=== PATIENT | female | born 1965 ===

== ENCOUNTER 2017-12-26 13:23 | Emergency (ER) | payer OTHER ==
[2017-12-26] MEDS ORDERED: ONDANSETRON 4 MG/2 ML VIAL IVP ONE ×2 (13:30→16:25)
[2017-12-26] MEDS ORDERED: fentaNYL CITR 100 MCG/2 ML AMP IVP ONE (13:30)
[2017-12-26] MEDS ORDERED: ESTR1PAT4 TD (13:31)
[2017-12-26] MEDS ORDERED: METO25TA93 PO (13:31)
[2017-12-26] MEDS ORDERED: DEXL60CA6 PO (13:31)
[2017-12-26] MEDS ORDERED: LATA2.5D7 OP (13:32)
--- NOTE | 2017-12-26 13:32 | ER Report ---
History and Physical Time Seen By MD: 13:23 Hx. of Stated Complaint: PT PRESENTS WITH HX OF TRIPPING ON CURB AND FALLING , CATCHIING HERSELF WITH L ARM. PT HAS DEFORMITY TO L WRIST ([facility]) HPI/ROS CHIEF COMPLAINT: Fall HISTORY OF PRESENT ILLNESS: This is a 52-year-old female who presents to the emergency department via EMS for a fall and a left wrist and forearm deformity. Patient states that about 20-30 minutes prior to arrival she was helping guide the truck up to a trailer while she was walking backwards she tripped over a curb put her hand out behind her to break the fall she fell down and the left arm buckled. There is an obvious deformity to the distal forearm/wrist. Patient states she did hit her head but no loss of consciousness, no C-spine pain and no shoulder or humerus pain. CMS intact distal to the injury. No chest pain or shortness of breath no aches or chills. REVIEW OF SYSTEMS: Respiratory: No cough, no dyspnea. Cardiovascular: No chest pain, no palpitations. Gastrointestinal: No vomiting, no abdominal pain. Musculoskeletal: As above. ([facility]) Allergies: Coded Allergies: Penicillins (Verified Allergy, Unknown, 12/26/17) Home Meds Active Scripts Ondansetron (ZOFRAN ODT) 4 Mg Tab.rapdis, 4 MG PO Q6H Y for NAUSEA/VOMITING, # 20 TAB.BARBIE Prov:[facility] 12/26/17 Hydrocodone Bit/Acetaminophen (NORCO 5-325 TABLET) 1 Each Tablet, 1 EACH PO Q4- 6H Y for PAIN, #12 TAB Prov:[facility] 12/26/17 Reported Medications Latanoprost (LATANOPROST) 2.5 Ml Drops, 2.5 ML OP 12/26/17 Estradiol (ESTRADIOL 0.1 MG) 1 Each Patch.tdwk, 1 EACH TD Q7D, PATCH.WK 12/26/17 Dexlansoprazole (DEXILANT) 60 Mg Meet., 60 MG PO 12/26/17 Metoprolol Tartrate (METOPROLOL TARTRATE) 25 Mg Tablet, 2 TAB PO BID, TAB 12/26/17 Past Medical/Surgical History Patient has a past medical and surgical history of hypertension, GERD, hysterectomy, tubal ligation, right foot surgery. ([facility]) Reviewed Nurses Notes: Yes ([facility]) Constitutional Vital Sign - Last 24 Hours 12/26/17 12/26/17 12/26/17 12/26/17 13:23 13:23 13:24 13:47 Temp 98.5 Pulse 77 Resp 20 B/P (MAP) 155/130 (138) 155/130 (138) 155/130 155/88 (110) Pulse Ox 93 O2 Delivery Room Air 12/26/17 12/26/17 12/26/17 12/26/17 13:47 13:53 13:53 14:00 Pulse 76 76 B/P (MAP) 155/88 (110) 134/85 (101) Pulse Ox 89 89 12/26/17 12/26/17 14:00 14:01 B/P (MAP) 134/85 (101) O2 Flow Rate 2.0 (VENTURA WRIGHT S DO) Physical Exam General Appearance: The patient is alert, has no immediate need for airway protection and no current signs of toxicity. Eyes: Pupils equal and round no injection. Respiratory: Chest is non tender, lungs are clear to auscultation. Cardiac: regular rate and rhythm, no murmurs, clicks or rubs. Gastrointestinal: Abdomen is soft and non tender, no masses, bowel sounds normal. Musculoskeletal: Neck: Neck is supple and non tender. Extremities obvious deformity to the left distal forearm, some crepitation identified. Patient can move her thumb, abduct her fingers however there is significant pain with abduction. Sensation intact with some numbness and tingling to the medial side and palmar side of the left index finger and thumb. Good capillary refill. Mild discomfort to the medial elbow with palpation, no crepitus or obvious deformities to the elbow. Skin: No rashes or lesions. DIFFERENTIAL DIAGNOSIS: After history and physical exam differential diagnosis was considered for dislocation, wrist fracture, fracture, forearm fracture and dislocation. ([facility]) Medical Decision Making EKG/Imaging Imaging WRIST LEFT MIN 3 VIEW COMPARISON: Left wrist radiographs earlier today. HISTORY: POST REDUCTION TECHNIQUE: 3 views of the left wrist were obtained with time stamp 1439 hours. FINDINGS: BONES: Post reduction there is improved alignment of a comminuted intra- articular distal radial metaphysis fracture. There is about 4 mm of residual dorsal displacement and mild residual dorsal angulation. Distally displaced ulnar styloid fracture fragment is noted. No new fractures are seen. Fine bony details obscured by the overlapping splint. SOFT TISSUES: Diffuse soft tissue swelling. OTHER: Negative. IMPRESSION: 1. Improved alignment of the comminuted intra-articular distal radial metaphysis fracture post reduction. Mild residual dorsal displacement and angulation are noted. 2. Distally displaced ulnar styloid fracture fragment has shifted in position from the prereduction films. Report Dictated By: Reyes Ornelas at 12/26/2017 3:10 PM Report E-Signed By: Reyes Ornelas at 12/26/2017 3:12 PM WSN:[id number] HAND COMPLETE LEFT COMPARISON: None. HISTORY: fall, pain TECHNIQUE: 3 views of the left hand were obtained. FINDINGS: BONES: Acute comminuted fracture of the distal left radial metaphysis as described on the shank tapper wrist films. No other acute fractures are identified. No significant arthropathy. Small chronic bone fragment at the base of the first metacarpal, probably related to remote trauma. There is a round density in the projection of the distal ulnar metaphysis which could represent a displaced ulnar styloid fracture fragment. SOFT TISSUES: Diffuse soft tissue swelling. Punctate metallic density foreign bodies in the projection of multiple fingers. These could be on the skin. OTHER: Negative. IMPRESSION: 1. Acute comminuted fracture, distal left radial metaphysis as described on shank tapper wrist films. 2. Density in the projection of the distal ulnar metaphysis could be a displaced ulnar styloid fracture fragment. 3. Metallic density foreign bodies in the projection of the fifth fingers, possibly on the skin. Report Dictated By: Reyes Ornelas at 12/26/2017 3:07 PM Report E-Signed By: Reyes Ornelas at 12/26/2017 3:10 PM WSN:[id number] ELBOW 2 VIEW LEFT COMPARISON: None. HISTORY: fall, deformity TECHNIQUE: 2 views of the left elbow, including a frontal and an oblique view. I confirmed with the technologist that a lateral view was not obtained. FINDINGS: BONES: No significant arthropathy, fracture, malalignment, or significant osseous lesion. Elbow alignment is within normal limits. SOFT TISSUES: Negative. No visible soft tissue swelling. EFFUSION: Cannot be assessed without a true lateral view. OTHER: Negative. IMPRESSION: No acute fracture or malalignment, left elbow. Cannot assess for joint effusion without a lateral view. Report Dictated By: Reyes Ornelas at 12/26/2017 3:06 PM Report E-Signed By: Reyes Ornelas at 12/26/2017 3:13 PM WSN:[id number] [facility]: [facility] [place] Patient: Jadon Su : 1965 Visit/Account:[id number] Date of Sevice: 12/26/2017 ADDENDUM #1 Also noted is a small round density in the projection of the distal ulnar metaphysis which could represent a displaced ulnar styloid fracture fragment. Report Dictated By: Reyes Ornelas at 12/26/2017 3:10 PM Report E-Signed By: Reyes Ornelas at 12/26/2017 3:10 PM ORIGINAL REPORT WRIST LEFT MIN 3 VIEW COMPARISON: None. HISTORY: fall, deformity TECHNIQUE: 3 views of the left wrist were obtained. FINDINGS: BONES: Acute comminuted intra-articular fracture of the distal left radial metaphysis with a full bone shaft width of dorsal displacement, moderate dorsal angulation, moderate impaction and up to 1.3 cm of overriding of fracture fragments. The proximal carpal low is displaced dorsally with the articular surface of the radius. No other fractures are identified. Carpal alignment within normal limits. Small chronic bone fragment, base of the first metacarpal. This could be due to remote trauma. SOFT TISSUES: Circumferential soft tissue swelling. OTHER: Negative. IMPRESSION: Acute comminuted intra-articular fracture of the distal left radial metaphysis with dorsal displacement and angulation, impaction and overriding. Report Dictated By: Reyes Ornelas at 12/26/2017 3:03 PM Report E-Signed By: Reyes Ornelas at 12/26/2017 3:06 PM WSN:[id number] [facility] Clinical Indication for ER IV: Hydration, IV Access ED Course The patient was admitted to room. A history of physical or pain. Differential diagnoses were considered. An IV was started. A 1 L normal saline bolus was given. Patient did receive the heart and 50 g IM and route via EMS. In the emergency department the patient was given 50 g IV fentanyl, 1 mg IV Dilaudid, 4 mg IV Zofran. X-ray of the left elbow showing no acute fracture. Left hand x- ray no acute fracture. Left wrist showing an acute comminuted fracture, distal left radial metaphysis, acute comminuted intra-articular fracture of the distal left radial metaphysis with dorsal displacement and a relation. Patient was given procedural sedation using ketamine as noted below, patient tolerated very well the wrist was reduced a postreduction film was obtained. The left wrist and forearm were splinted using a sugar tong and secured with an Enrique wrap. The post reduction x-ray is showing improved alignment of the comminuted intra- articular distal radial metaphysis fracture, and mild residual dorsal displacement and angulation. Distally displaced ulnar styloid fracture fragment has shifted into position from the previous x-ray. The patient was placed in a sling. Patient was given 2 mg IV morphine after she began to wake up his pain began to increase, patient was then given a [place] as well as a prescription for [place] and Zofran. I did review this case with Dr. Bush as noted below, he felt that the patient would be up to go home and follow-up with the orthopedist of their choice in the [place] area. I did discuss at length with the patient and his family to be sure and keep the arm elevated take the medications as prescribed and seek immediate medical attention if severe pain develops, discoloration of the extremities with decreased sensation. The patient's and the family expressed understanding of the patient was discharged home. The patient had no questions or concerns at this time of discharge. 12/26/2017 3:34:45 pm in to reassess the patient's sensation, the numbness and tingling has improved, full sensation patient is able to move her fingers. Good capillary refill. 12/26/2017 3:40:27 pm I did speak with Dr. Bush, the orthopedist editorial cartoonist, he will take a look at the images and remain off there is anything else that we need to do prior to discharge. 12/26/2017 3:45:[address] Bush did call back, he was able to view the images said that the postreduction looks well enough to discharge the patient, the patient will follow-up in [place] with her orthopedist this week. Procedure: Procedural sedation. A pre-sedation evaluation was completed on the patient at 1420. Patient is an appropriate candidate for procedural sedation. The risks of the sedation were discussed with the patient. A time out was completed. The patient was reevaluated immediately prior to initiation of sedation. The patient was sedated with ketamine, 75mg. The patient was monitored with continuous pulse oximetry and manager monitoring. There were no complications and no significant hypoxemia. I remained at the bedside for the sedation. The total time I spent in the procedural sedation was 20minutes. Post sedation evaluation: Patient was alert and cooperative, hemodynamically stable with appropriate respiratory status, temperature and pain control without ongoing nausea and vomiting. Procedure: Dislocation/fracture reduction. The left wrist was reduced in the usual fashion without complications. Post reduction the patient's neurovascular exam is normal. Post reduction x-ray demonstrates reduction of the joint to the anatomic position. The procedure was performed by myself and Dr. Wright. Decision to Disposition Date: December 26, 2017 Decision to Disposition Time: 16:36 [facility] Course I was present at bedside for the reduction of the left wrist under procedural sedation with SHEELA Stover. (VENTURA WRIGHT DO) Depart Departure Latest Vital Signs Vital Signs Date Time Temp Pulse Resp B/P (MAP) Pulse Ox O2 Delivery O2 Flow Rate FiO2 12/26/17 14:01 2.0 12/26/17 14:00 134/85 (101) 12/26/17 13:53 76 89 12/26/17 13:24 98.5 20 Room Air (VENTURA WRIGHT DO) Impression: Primary Impression: Left wrist fracture Condition: Improved Disposition: HOME OR SELF-CARE New Scripts Ondansetron (ZOFRAN ODT) 4 Mg Tab.rapdis 4 MG PO Q6H Y for NAUSEA/VOMITING, #20 TAB.BARBIE Prov: [facility]- 12/26/17 Hydrocodone Bit/Acetaminophen (NORCO 5-325 TABLET) 1 Each Tablet 1 EACH PO Q4-6H Y for PAIN, #12 TAB Prov: [facility] 12/26/17 Patient Instructions: Wrist Fracture in Adults (ED) Additional Instructions: Drink plenty of fluids. Get as much sleep as you can. Take Zofran for nausea. Take Hydrocodone as needed for severe pain, can cause constipation. You must keep the arm elevated as much as possible. Follow up with your orthopedist when you return to [place] tomorrow. Continue to monitor for numbness and tingling and severe pain, if these are present follow up at the nearest ED. Return to the ED for any other concerns or worsening symptoms. RADIO INTERFERENCE EXPERT/PA consult with MD: Examined Patient (VENTURA WRIGHT DO) Problem Qualifiers Primary Impression: Left wrist fracture Encounter type: initial encounter Fracture type: closed Qualified Codes: S62.102A - Fracture of unspecified carpal bone, left wrist, initial encounter for closed fracture [facility] December 26, 2017 13:32 VENTURA WRIGHT DO December 26, 2017 14:45
[2017-12-26] MEDS ORDERED: NS(*) 0.9% 1000 ML BAG 1,000 ML IV ONE (13:35)
[2017-12-26] MEDS ORDERED: HYDROmorphone* 1 MG/ML 1 MG/ML ML IVP ONE (13:50)
[2017-12-26] MEDS ORDERED: KETAMINE HCL 200 MG/20 ML MDV IVP ONE (14:10)
--- NOTE | 2017-12-26 15:09 | RADIOLOGY IMAGING REPORT ---
FACILITY: [facility] - [place] PATIENT NAME: Jadon Su : 1965 MR: [id number] V: [id number] EXAM DATE: ORDERING PHYSICIAN: [facility] TECHNOLOGIST: Location: [facility] [place] Patient: Jadon Su : 1965 Visit/Account:[id number] Date of Sevice: 12/26/2017 ADDENDUM #1 Also noted is a small round density in the projection of the distal ulnar metaphysis which could repr esent a displaced ulnar styloid fracture fragment. Report Dictated By: Reyes Ornelas at 12/26/2017 3:10 PM Report E-Signed By: Reyes Ornelas at 12/26/2017 3:10 PM ORIGINAL REPORT WRIST LEFT MIN 3 VIEW COMPARISON: None. HISTORY: fall, deformity TECHNIQUE: 3 views of the left wrist were obtained. FINDINGS: BONES: Acute comminuted intra-articular fracture of the distal left radial metaphysis with a full charo ne shaft width of dorsal displacement, moderate dorsal angulation, moderate impaction and up to 1.3 c m of overriding of fracture fragments. The proximal carpal low is displaced dorsally with the articul ar surface of the radius. No other fractures are identified. Carpal alignment within normal limits. S mall chronic bone fragment, base of the first metacarpal. This could be due to remote trauma. SOFT TISSUES: Circumferential soft tissue swelling. OTHER: Negative. IMPRESSION: Acute comminuted intra-articular fracture of the distal left radial metaphysis with dorsal displaceme nt and angulation, impaction and overriding. Report Dictated By: Reyes Ornelas at 12/26/2017 3:03 PM Report E-Signed By: Reyes Ornelas at 12/26/2017 3:06 PM WSN:[id number]
--- NOTE | 2017-12-26 15:14 | RADIOLOGY IMAGING REPORT ---
FACILITY: [facility] PATIENT NAME: Jadon Su : 1965 MR: [id number] V: [id number] EXAM DATE: ORDERING PHYSICIAN: [facility] TECHNOLOGIST: Location: [facility] [place] Patient: Jadon Su : 1965 Visit/Account:[id number] Date of Sevice: 12/26/2017 HAND COMPLETE LEFT COMPARISON: None. HISTORY: fall, pain TECHNIQUE: 3 views of the left hand were obtained. FINDINGS: BONES: Acute comminuted fracture of the distal left radial metaphysis as described on the patternmaker helper wrist films. No other acute fractures are identified. No significant arthropathy. Small chronic bone fragment at the base of the first metacarpal, probably related to remote trauma. There is a round den sity in the projection of the distal ulnar metaphysis which could represent a displaced ulnar styloid fracture fragment. SOFT TISSUES: Diffuse soft tissue swelling. Punctate metallic density foreign bodies in the projecti on of multiple fingers. These could be on the skin. OTHER: Negative. IMPRESSION: 1. Acute comminuted fracture, distal left radial metaphysis as described on patternmaker helper wrist films. 2. Density in the projection of the distal ulnar metaphysis could be a displaced ulnar styloid fract ure fragment. 3. Metallic density foreign bodies in the projection of the fifth fingers, possibly on the skin. Report Dictated By: Reyes Ornelas at 12/26/2017 3:07 PM Report E-Signed By: Reyes Ornelas at 12/26/2017 3:10 PM WSN:[id number]
--- NOTE | 2017-12-26 15:17 | RADIOLOGY IMAGING REPORT ---
FAC[place]: [facility] [place] PATIENT NAME: Jadon Su : 1965 MR: [id number] V: [id number] EXAM DATE: ORDERING PHYSICIAN: [facility] TECHNOLOGIST: Location: [facility] Patient: Jadon Su : 1965 Visit/Account:[id number] Date of Sevice: 12/26/2017 ELBOW 2 VIEW LEFT COMPARISON: None. HISTORY: fall, deformity TECHNIQUE: 2 views of the left elbow, including a frontal and an oblique view. I confirmed with the technologist that a lateral view was not obtained. FINDINGS: BONES: No significant arthropathy, fracture, malalignment, or significant osseous lesion. Elbow ali gnment is within normal limits. SOFT TISSUES: Negative. No visible soft tissue swelling. EFFUSION: Cannot be assessed without a true lateral view. OTHER: Negative. IMPRESSION: No acute fracture or malalignment, left elbow. Cannot assess for joint effusion without a lateral vie w. Report Dictated By: Reyes Ornelas at 12/26/2017 3:06 PM Report E-Signed By: Reyes Ornelas at 12/26/2017 3:13 PM WSN:[id number]
--- NOTE | 2017-12-26 15:18 | RADIOLOGY IMAGING REPORT ---
FACILITY: [facility] - [place] PATIENT NAME: Jadon Su : 1965 MR: [id number] V: [id number] EXAM DATE: ORDERING PHYSICIAN: [facility]ER[facility] AL[facility] TECHNOLOGIST: Location: [facility] [place] Patient: Jadon Su : 1965 Visit/Account:[id number] Date of Sevice: 12/26/2017 WRIST LEFT MIN 3 VIEW COMPARISON: Left wrist radiographs earlier today. HISTORY: POST REDUCTION TECHNIQUE: 3 views of the left wrist were obtained with time stamp 1439 hours. FINDINGS: BONES: Post reduction there is improved alignment of a comminuted intra-articular distal radial meta physis fracture. There is about 4 mm of residual dorsal displacement and mild residual dorsal angulat ion. Distally displaced ulnar styloid fracture fragment is noted. No new fractures are seen. Fine bon y details obscured by the overlapping splint. SOFT TISSUES: Diffuse soft tissue swelling. OTHER: Negative. IMPRESSION: 1. Improved alignment of the comminuted intra-articular distal radial metaphysis fracture post reduc tion. Mild residual dorsal displacement and angulation are noted. 2. Distally displaced ulnar styloid fracture fragment has shifted in position from the prereduction films. Report Dictated By: Reyes Ornelas at 12/26/2017 3:10 PM Report E-Signed By: Reyes Ornelas at 12/26/2017 3:12 PM WSN:[id number]
[2017-12-26] MEDS ORDERED: MORPHINE 2 MG/ML SYR IVP ONE (16:25)
[2017-12-26] MEDS ORDERED: APAP/HYDROCODONE 325/5 TAB PO ONE (16:25)
[2017-12-26] MEDS ORDERED: ONDA4TAB PO (16:28)
[2017-12-26] MEDS ORDERED: HYDR-4309 PO (16:28)
[2017-12-26 16:30] VITALS: BP 128/80
== END 2017-12-26 16:43 | disposition home or self-care (01) ==
LOC: ER 13:26
DX: S62.102A Fracture of unspecified carpal bone, left wrist, initial encounter for closed fracture (principal); W01.198A Fall on same level from slipping, tripping and stumbling with subsequent striking against other object, initial encounter
CPT/HCPCS: 25605; 73080; 73110; 73130; 96361; 96374; 96375; 96376; 99152; 99285; A4565; J1170; J2270; J2405; J3010; J3490; J7030

== ENCOUNTER → 2017-12-26 | Outpatient (CLI) | payer OTHER ==
[~2017-12-26] MED LIST: DEXL60CA6 PO; ESTR1PAT4 TD; HYDR-4309 PO; LATA2.5D7 OP; METO25TA93 PO; ONDA4TAB PO
== END ==
LOC: AMB 12:48
PROVIDERS: ATTEND Nurse Practitioner
DX: M25.531 Pain in right wrist (principal); M21.931 Unspecified acquired deformity of right forearm
CPT/HCPCS: A0425; A0427